=== PATIENT | female | born 1980 | race Caucasian/White ===

== ENCOUNTER 2018-05-27 16:58 | Outpatient (CLI) | END 2018-05-27 20:35 | disposition home or self-care (01) ==

== ENCOUNTER 2018-09-05 12:09 | Outpatient (CLI) | payer MEDICAID ==
[~2018-09-05] VITALS: Ht 157.5 cm; Wt 110.2 kg
[~2018-09-05 12:09] MED LIST: METF500T24 PO; PREN1TAB49 PO
[2018-09-05 12:18] VITALS: Ht 157.5 cm; Wt 110.2 kg
[2018-09-05 12:42] VITALS: BP 132/72; PULSE 88; RESP 18
--- NOTE | 2018-09-05 15:18 | PN ---
Triage Information Date/Time Reason for visit: GDM for NST BPP Weeks of Gestation 37+ /Para 3/2 Diabetes: gestational Diabetes management: diet controlled Hypertention: none Objective Vital Signs Date Temp Pulse Resp B/P (MAP) Pulse Ox O2 O2 Flow FiO2 Time Delivery Rate 09/05/18 98.5 88 18 132/72 Room Air 12:42 (92) Heart Rate: 140's Contractions: None Results/Medications Results 24 hrs Laboratory Tests Test 09/05/18 12:53 Bedside Glucose 79 Disposition: Discharge Assessment/Plan BPP 04/20 +FM Cx closed Questions answered Precautions discussed Follow up with provider SILVER FOWLER M.D. Sep 05, 2018 15:18
--- NOTE | 2018-09-05 15:30 | TRIAGE ---
OB Triage Datetime Report Generated by CPN: 09/05/2018 15:30 Datetime: 09/05/2018 15:08 Vaginal Exam Dilatation (cms): 0.5 Effacement (%): 70 Station: -3 Exam By: bjacobo Datetime: 09/05/2018 14:45 Stage of : OB Triage Labor Evaluation Frequency: occ Monitor Mode: External Duration (sec)2399: 70-100 Quality: Moderate Pattern: Normal: <= 5 Contractions in 10 Minutes Resting Tone [place]: Relaxed Heart Rate FHR Baseline Rate: 130 Monitor Mode: External US Variability: Moderate 6-25 bpm Accelerations: 15X15 Decelerations: None Category: Category I Pain Assessment Pain Scale: 0 Pain Presence: None/Denies Pain Type: N/A Datetime: 09/05/2018 13:45 Stage of : OB Triage Labor Evaluation Frequency: occ Monitor Mode: External Duration (sec)2399: 70-110 Quality: Moderate Pattern: Normal: <= 5 Contractions in 10 Minutes Resting Tone [place]: Relaxed Heart Rate FHR Baseline Rate: 130 Monitor Mode: External US Variability: Moderate 6-25 bpm Accelerations: 15X15 Decelerations: None Category: Category I Pain Assessment Pain Scale: 0 Pain Presence: None/Denies Pain Type: N/A Datetime: 09/05/2018 12:53 Bedside Blood Glucose: 79 Datetime: 09/05/2018 12:47 Labor Evaluation Frequency: x1 Monitor Mode: External Duration (sec)2399: 120 Quality: Moderate Pattern: Normal: <= 5 Contractions in 10 Minutes Resting Tone [place]: Relaxed Heart Rate FHR Baseline Rate: 140 Monitor Mode: External US Variability: Minimal - Undetectable to <=5 bpm Accelerations: 15X15 Decelerations: None Category: Category II Pain Presence: None/Denies Pain Type: N/A Datetime: 09/05/2018 12:28 Assessment Type: Triage Maternal Assessment Level of Consciousness: Fully Conscious Headache: Denies Blurred Vision: No Respiratory Effort: Unlabored; Regular Rhythm; Equal Expansion Breath Sounds, Left: Clear and Equal Breath Sounds, Right: Clear and Equal Nausea/Vomiting: Denies RUQ Epigastric Pain: Denies Lower Extremities Edema: Bilateral Lower Extremities Degree: 1+ Upper Extremities Edema: None Degree: None Facial Edema: None Fall Risk Assessment History of Falling: (0) No Secondary Diagnosis: (0) No Ambulatory Aid: (0) Bedrest/Nurse Assist IV Therapy: (0) No Gait: (0) Normal/Bedrest/Immobile Mental Status: (0) Oriented to Own Ability Fall Score: 0 Fall Risk Score Definition: No Risk: No action required Datetime: 09/02/2018 10:38 Time of Arrival: 09/05/2018 12:00 EGA: 37.3 Arrived By: Ambulatory Arrived From: Dr. Juarez Movement: Decreased Contractions: Denies/Absent Rupture of Membranes: Denies Vaginal Bleeding: None Vaginal Discharge: Denies Recent Sexual Intercouse: Denies Abdominal Trauma: Not Applicable Patient Complaints: None Time Provider Notified: 09/05/2018 14:46 Provider Notified: Delshad Initial Plan: Orders with BPP/ NST Datetime: 08/09/2018 03:49 EGA: 33.4 Datetime: 05/27/2018 21:02 EGA: 23.0 Datetime: 05/27/2018 17:26 Fall Score: 0 Fall Risk Score Definition: No Risk: No action required
== END 2018-09-05 15:42 | disposition home or self-care (01) ==
LOC: L-D 12:09 → OBT 12:09 → L-D 12:12 → OBT 15:42
PROVIDERS: ATTEND Obstetrics & Gynecology
DX: O24.410 Gestational diabetes mellitus in pregnancy, diet controlled (principal); O36.8130 Decreased fetal movements, third trimester, not applicable or unspecified; Z3A.37 37 weeks gestation of pregnancy
CPT/HCPCS: 76818; 82962; Z7500; G0463

== ENCOUNTER 2018-09-16 10:04 | Inpatient (IN) | payer MEDICAID ==
[~2018-09-16] VITALS: Ht 154.9 cm; Wt 108.8 kg
[~2018-09-16 10:04] MED LIST changes: -METF500T24 PO; +OXYTOCIN 30 UNITS/LR 500 ML BAG IV ONE
[2018-09-16 10:17] VITALS: Ht 154.9 cm; Wt 108.8 kg
[2018-09-16] MEDS ORDERED: OXYTOCIN 30 UNITS/LR 500 ML IV PRN ×2 (10:30→20:30)
[2018-09-16] MEDS ORDERED: METHYLERGONOVINE 0.2 MG INJ IM PRN ×2 (10:30→20:30)
[2018-09-16] MEDS ORDERED: CEFAZOLIN 2 GM/50 ML (PMX) 50 ML IVPB SCH (10:30)
[2018-09-16] MEDS ORDERED: CARBOPROST 250 MCG INJ IM PRN ×2 (10:30→20:30)
[2018-09-16] MEDS ORDERED: MISOPROSTOL 200 MCG TAB PR PRN ×2 (10:30→20:30)
[2018-09-16] MEDS ORDERED: CITRIC ACID/NA CITRATE 30 ML CUP ONE (10:39)
[2018-09-16] MEDS ORDERED: ONDANSETRON 4 MG INJ ONE (10:40)
[2018-09-16] MEDS: LACTATED RINGER'S 1,000 ML IV SCH ×2 (11:01→18:18)
[2018-09-16 11:02] VITALS: BP 131/77; PULSE 88; RESP 18
--- NOTE | 2018-09-16 11:44 | PREAC ---
Date/Time of Note Date/Time of Note DATE: 09/16/18 TIME: 11:43 Anesthesia Eval and Record Evaluation Time Pre-Procedure Interview DATE: 09/16/18 TIME: 11:43 Age 37 Sex female NPO: 8 hrs Preoperative diagnosis Repeat and BTL Planned procedure and BTL Past Medical History Past Medical History: Includes Heme: Anemia : : (4), Para: (3), Gestational age: (39), Gestational diabetes Surgery & Anesthesia Issues No known issue Meds Anticoagulation: No Beta Yamilka within 24 hr: No Reason Beta Yamilka not given: Pt. not on B-Yamilka Reported Medications Vits W-Ca,Fe,Fa(<1MG) () 1 Tab Tablet, 1 TAB PO 03/04/12 Current Medications Lactated Ringer's 1,000 ml @ 125 mls/hr Q8H IV Last administered on 09/16/18at 11:01; Admin Dose 125 MLS/HR; Start 09/16/18 at 10:18 Cefazolin Sodium/ Dextrose 50 ml @ 100 mls/hr ONCE IVPB ; Start 09/16/18 at 1 0:30 Oxytocin/Lactated Ringer's 500 ml @ 125 mls/hr POST IV ; Start 09/16/18 at 10:30 Oxytocin/Lactated Ringer's 500 ml @ 0 mls/hr ONCE PRN IV .VAGINAL BLEEDING; Start 09/16/18 at 10:30 Methylergonovine Maleate (Methergine) 0.2 mg ONCE PRN IM .VAGINAL BLEEDING; Start 09/16/18 at 10:30 Carboprost Tromethamine (Hemabate) 250 mcg ONCE PRN IM .VAGINAL BLEEDING; Start 09/16/18 at 10:30 Misoprostol (Cytotec) 1,000 mcg ONCE PRN [place] .VAGINAL BLEEDING; Start 09/16/18 at 10:30 Meds reviewed: Yes Allergies Coded Allergies: No Known Allergy (Unverified , 09/05/18) Allergies Reviewed: Yes Labs/Studies Labs Reviewed: Reviewed by anesthesiologist Result Diagram: 09/16/18 1048 09/16/18 1048 Laboratory Tests 09/16/18 10:48 Blood Bank Test 09/16/18 10:48 Antibody Screen NEGATIVE Blood Type O POSITIVE Rh Immune Globulin Candidate NO test: Positive Studies: ECG (n/a), CXR (n/a) Pre-procedure Exam Last vitals Vital Signs Date Temp Pulse Resp B/P (MAP) Pulse Ox O2 O2 Flow FiO2 Time Delivery Rate 09/16/18 98.0 88 18 131/77 Room Air 11:02 (95) Airway: Adequate mouth opening, Adequate thyromental dist Mallampati: Mallampati II Teeth: Normal Lung: Normal Heart: Normal ASA Physical Status ASA physical status: 2 Emergency: None Planned Anesthetic Neuraxial: Spinal Planned Pain Management Sub-arachniod narcotics, Parenteral pain med Pre-operative Attestations Prior to commencing anesthesia and surgery, the patient was re-evaluated, there was verification of: *The patient's identity *The results of appropriate recent lab work and preoperative vital signs *The above evaluation not changing prior to induction *Anesthetic plan, risk benefits, alternative and complications discussed with pa tient/family; questions answered; patient/family understands, accepts and wishes to proceed. JANNIE SAUCEDO MD Sep 16, 2018 11:44
[2018-09-16] MEDS ORDERED: CITRIC ACID/NA CITRATE 30 ML CUP PO ONE (12:00)
[2018-09-16] MEDS ORDERED: ONDANSETRON 4 MG INJ IV ONE (12:00)
--- NOTE | 2018-09-16 13:15 | HP ---
Date/Time of Note Date/Time of Note DATE: 09/16/18 TIME: 13:13 OB - History Hx of Present Chief Complaint: scheduled Estimated Due Date: Sep 23, 2018 : 5 Para: 3 Spontaneous : 1 Therapeutic : 0 Care: Good Care Ultrasounds: Normal mid trimester US Obstetrical Complications: Gestational Diabetes Medical Complications: None Past Family/Social History * Past Medical, Surgical, Family and Obstetric Histories reviewed from chart. GBS Status: Negative OB Admission Exam Vital Signs Vital Signs Vital Signs Date Temp Pulse Resp B/P (MAP) Pulse Ox O2 O2 Flow FiO2 Time Delivery Rate 09/16/18 98.0 88 18 131/77 Room Air 11:02 (95) Physical Exam HEENT: WNL Heart: Rhythm Normal Lungs: Clear, Equal Abdomen: WNL Extremities: Normal Reflexes: Normal Heart Rate: 120's Accelerations: Accelerations Present Decelerations: No Decelerations Varibility: Moderate Last 72 hours Lab Results CBC & BMP 09/16/18 10:48 OB Assessment/Plan Reason for admission: section Other Assessment: Voluntary sterilization Plan: Section, Other Other plan: Bilateral Tubal Ligation LING CRAWFORD MD Sep 16, 2018 13:15
[2018-09-16] MEDS ORDERED: PHENYLephrine (100 MCG/ML) 10ML SYG ONE (13:27)
[2018-09-16] MEDS ORDERED: morphine SULFATE/PF (10 MG/10 ML) INJ ONE (13:28)
[2018-09-16] MEDS ORDERED: OXYTOCIN 10 UNIT INJ ONE (13:28)
[2018-09-16] MEDS ORDERED: ACETAMINOPHEN 500 MG TAB PO PRN (14:00)
[2018-09-16] MEDS ORDERED: NALOXONE (0.4 MG/ML) INJ IV PRN (14:00)
[2018-09-16] MEDS ORDERED: morphine 2 MG INJ IV PRN ×2 (14:00)
[2018-09-16] MEDS ORDERED: NALBUPHINE HCL (10 MG/1 ML) INJ IV PRN (14:00)
[2018-09-16] MEDS ORDERED: ONDANSETRON 4 MG INJ IV PRN (14:00)
[2018-09-16] MEDS ORDERED: HYDROCODONE/APAP (5/325) TAB PO PRN (14:00)
[2018-09-16] MEDS ORDERED: HYDROmorphONE 0.5 MG/0.5 ML SYG IV PRN ×2 (14:00)
[2018-09-16] MEDS ORDERED: DIPHENHYDRAMINE 50 MG INJ IV PRN (14:00)
[2018-09-16] MEDS ORDERED: KETOROLAC 30 MG INJ ONE (14:13)
[2018-09-16] MEDS ORDERED: METOCLOPRAMIDE 10 MG INJ ONE (14:13)
[2018-09-16] MEDS ORDERED: DEXAMETHASONE 4 MG/ML 1 ML INJ ONE (14:13)
--- NOTE | 2018-09-16 14:48 | PAC ---
Date/Time of Note Date/Time of Note DATE: 09/16/18 TIME: 14:48 Post-Anesthesia Notes Post-Anesthesia Note Last documented vital signs Vital Signs Date Temp Pulse Resp B/P (MAP) Pulse Ox O2 O2 Flow FiO2 Time Delivery Rate 09/16/18 98.0 88 18 131/77 96 Room Air 14:55 (95) Activity: WNL Respiratory function: WNL Cardiovascular function: WNL Mental status: Baseline Pain reasonably controlled: Yes Hydration appropriate: Yes Nausea/Vomiting absent: Yes JANNIE SAUCEDO MD Sep 16, 2018 14:48
--- NOTE | 2018-09-16 14:59 | OPPN ---
Date/Time of Note Date/Time of Note DATE: 09/16/18 TIME: 14:53 Operative Report Planned Procedure Procedure date Sep 16, 2018 Procedure(s) Repeat c/s and BTL Performed by Ling Crawford MD Staff Psychiatrist: ANTHONY SOSA MD 2nd Staff Psychiatrist none Anesthesiologist: JANNIE SAUCEDO MD Pre-procedure diagnosis Term , previous c/s and voluntary sterilization [id number] Anesthesia Type: [id number] spinal Post-Procedure Post-procedure diagnosis Same Findings Live Baby, Apgars 8 and 9. Estimated Blood Loss: other (600 ml) Specimen(s) Placenta and Fallopian tubes Grafts/Implant(s) none Complication(s) none LING CRAWFORD MD Sep 16, 2018 14:59
[2018-09-16] MEDS: OXYTOCIN 30 UNITS/LR 500 ML IV SCH ×3 (15:00→19:48)
[2018-09-16] MEDS: KETOROLAC 30 MG INJ IV PRN (16:50)
--- NOTE | 2018-09-16 17:23 | OPR ---
DATE OF OPERATION: 09/16/2018 PREOPERATIVE DIAGNOSES: 1. Term . 2. Previous section. 3. Gestational diabetes. 4. Voluntary sterilization. POSTOPERATIVE DIAGNOSES: 1. Term . 2. Previous section. 3. Gestational diabetes. 4. Voluntary sterilization. OPERATIONS: Repeat low transverse section and bilateral tubal ligation. SURGEON: Ling Toth MD DRAWING MACHINE OPERATOR: Katia Garcia MD ANESTHESIA: Spinal. ANESTHESIOLOGIST: Andrew Augustine MD PROCEDURE IN DETAILS: The patient was taken to operating room, placed on the operating table. After successful spinal anesthesia was given, the patient was placed in supine position. The area was pre pared and draped in the usual sterile fashion. Spinal anesthesia was tested and was satisfactory. U sing a scalpel, Pfannenstiel incision was made about 2 fingerbreadths above the symphysis pubis. The incision was carried down to the fascia. The fascia was incised and extended bilaterally with Small scissors. Two Kochers were used to separate the fascia from the muscle. The muscle was dissected do wn to peritoneum. The peritoneum was secured with 2 Kellys and incised with Metzenbaum scissors. Up on entering the peritoneal cavity, I used scalpel. A small transverse incision was made in the lower segment of the uterus. Upon entering the uterine cavity, bandage scissors were inserted to extend t he incision bilaterally, curved up. Baby was delivered from cephalic presentation. After suctioning clear amniotic fluid, the baby was handed off to the team in attendance. Apgars were 8 and 9. Placenta was delivered without difficulty. Uterus was closed using #1 Monocryl continuous shreya d. After assuring hemostasis, both ovaries and tubes were inspected and looked normal. The right fa llopian tube was grasped with a Christian clamp. Using 0 plain suture ligature, a 5 cm segment of the right fallopian tube was doubly ligated. Using Metzenbaum scissors, a portion of the right fallopian tube was then ligated, excised and sent to pathology. The same procedure was repeated on the left f allopian tube. After assuring hemostasis, the peritoneum was closed with 2-0 Vicryl continuous. Fas tanisha was closed with #1 Vicryl continuous in 2 segments. Subcutaneous tissue was reapproximated with 2-0 plain. The skin was closed with nakul. Estimated blood loss was 600 mL. All counts were marin ect. Dictated By: LING CURRY/LISANDRA Conf#: [id number] DID#: [id number]
[2018-09-16] MEDS ORDERED: LACTATED RINGER'S 1,000 ML IV SCH (20:10)
[2018-09-16] MEDS ORDERED: OXYTOCIN 30 UNITS/LR 500 ML IV SCH (20:10)
[2018-09-16 20:15] VITALS: BP 118/65; PULSE 82; RESP 18
[2018-09-16] MEDS ORDERED: OXYCODONE/ACETAMINOPHEN (5/325) TAB PO PRN (20:30)
[2018-09-16] MEDS: SENNA/DOCUSATE NA (8.6MG/50MG) TAB PO SCH (21:00)
[2018-09-17 01:00] VITALS: BP 123/61; PULSE 82; RESP 18
[2018-09-17] MEDS: KETOROLAC 30 MG INJ IV PRN ×2 (02:22→09:57)
[2018-09-17 04:06] VITALS: BP 110/59; PULSE 79; RESP 18
[2018-09-17 08:30] VITALS: BP 104/55; PULSE 81; RESP 18
[2018-09-17] MEDS: SENNA/DOCUSATE NA (8.6MG/50MG) TAB PO SCH ×2 (09:00→21:36)
[2018-09-17] MEDS: OXYCODONE/ACETAMINOPHEN (5/325) TAB PO PRN ×2 (14:10→18:05)
[2018-09-17 16:00] VITALS: BP 115/70; PULSE 82; RESP 18
--- NOTE | 2018-09-17 16:20 | QN ---
Documentation Comment No complaint Afebrile VSS Abdomen soft ND POD #1 Stable Ambulate advance diet. LING CRAWFORD MD Sep 17, 2018 16:20
[2018-09-17] MEDS: LANOLIN HPA 1 PKT TOP PRN (16:21)
[2018-09-17 19:30] VITALS: BP 140/74; PULSE 86; RESP 16
[2018-09-17] MEDS: IBUPROFEN 800 MG TAB PO SCH (21:36)
[2018-09-18] VITALS: BP 130/72; PULSE 80; RESP 16
[2018-09-18] MEDS: OXYCODONE/ACETAMINOPHEN (5/325) TAB PO PRN ×3 (00:03→16:56)
[2018-09-18 04:30] VITALS: BP 121/71; PULSE 71; RESP 16
[2018-09-18] MEDS: IBUPROFEN 800 MG TAB PO SCH ×3 (06:19→21:26)
[2018-09-18 08:15] VITALS: BP 123/72; PULSE 71; RESP 18
[2018-09-18] MEDS: SENNA/DOCUSATE NA (8.6MG/50MG) TAB PO SCH ×2 (08:33→21:26)
[2018-09-18] MEDS: LANOLIN HPA 1 PKT TOP PRN (16:57)
[2018-09-18] MEDS ORDERED: MAGNESIUM HYDROXIDE 30ML CUP PO ONE (18:30)
--- NOTE | 2018-09-18 18:33 | QN ---
Documentation Comment No complaint Afebrile VSS Abdomen soft Stable Continue persent care LING CRAWFORD MD Sep 18, 2018 18:33
[2018-09-18 19:42] VITALS: BP 128/80; PULSE 79; RESP 19
[2018-09-19 04:30] VITALS: BP 140/76; PULSE 66; RESP 19
[2018-09-19] MEDS: IBUPROFEN 800 MG TAB PO SCH ×2 (06:18→13:08)
[2018-09-19 08:06] VITALS: BP 129/68; PULSE 64; RESP 17
[2018-09-19] MEDS ORDERED: DIPHTH/TET/ACEL PERTUSS (ADULT) 0.5 ML VIAL IM* ONE (09:00)
[2018-09-19] MEDS: SENNA/DOCUSATE NA (8.6MG/50MG) TAB PO SCH (10:10)
[2018-09-19 13:11] VITALS: BP 133/75; PULSE 85; RESP 18
--- NOTE | 2018-09-19 14:22 | DS ---
Date/Time of Note Date/Time of Note DATE: 09/19/18 TIME: 14:21 Obstetrical Discharge Record Final Diagnosis Final Diagnosis: Term delivered Vaginal Delivery Obstetrical Delivery: Bilateral Tubal Ligation Section Section: Repeat Complications Gestational Diabetes Condition on Discharge Physical Assessment Voiding: Yes Bowel Movement: Yes Breast: Soft, non-tender, Filling Fundus: Firm Abdomen and Incision: Incision intact Calf Tenderness: No Patient Condition: Stable LING CRAWFORD MD Sep 19, 2018 14:22
--- NOTE | 2018-09-19 14:31 | NSTRPT ---
NST Information Datetime Report Generated by CPN: 09/19/2018 14:31 Datetime: 09/13/2018 09:41 NST Information EGA: 38.4 Test Number: 7 Time on Monitor: 09/13/2018 10:15 Time off Monitor: 09/13/2018 10:59 NST Duration (Min): 44 Reason for NST: Diabetes Mellitus; Other Reason for NST Other: A1DM, AMA Test and Monitor Explained: Monitor Explained; Test Explained; Verbalized Understanding Pulse: 90 Resp: 18 SBP: 116 DBP: 70 Test Evaluation NST Interventions: None Patient States Movement: Present Contraction Frequency: NONE FHR Baseline : 140 Variability: Moderate 6-25bpm Accelerations: 15X15 Decelerations: None FHR Category: Category I NST Results: Reactive Comments: To u /s. RUBENS 14.4cm. CEPHALIC. FBS 90 Electronically Signed By E-Signature: with User ID: [id number] Datetime: 09/09/2018 10:25 NST Information EGA: 38.0 NST Duration (Min): 43 Datetime: 09/06/2018 10:36 NST Information EGA: 37.4 NST Duration (Min): 35 Datetime: 09/02/2018 10:10 NST Information EGA: 37.0 NST Duration (Min): 38 Datetime: 08/31/2018 09:40 NST Information EGA: 36.5 NST Duration (Min): 53 Datetime: 08/26/2018 10:22 NST Information EGA: 36.0 NST Duration (Min): 28 Datetime: 08/23/2018 10:00 NST Information EGA: 35.4 NST Duration (Min): 46
== END 2018-09-19 15:25 | disposition home or self-care (01) | DRG 785 ==
LOC: L-D 10:04 → PP1 20:13
PROVIDERS: ADMIT Obstetrics & Gynecology; ATTEND Obstetrics & Gynecology
PROC: 0UL70ZZ Occlusion of Bilateral Fallopian Tubes, Open Approach (ICD-10-PCS; 2018-09-16)
PROC: 3E033VJ Introduction of Other Hormone into Peripheral Vein, Percutaneous Approach (ICD-10-PCS; 2018-09-16)
PROC: 10D00Z1 Extraction of Products of Conception, Low, Open Approach (ICD-10-PCS; principal; 2018-09-16 12:30)
DX: O34.211 Maternal care for low transverse scar from previous cesarean delivery (principal); O24.429 Gestational diabetes mellitus in childbirth, unspecified control; Z3A.39 39 weeks gestation of pregnancy; Z37.0 Single live birth; Z30.2 Encounter for sterilization
CPT/HCPCS: 80053; 81001; 82947; 84560; 85025; 85610; 85730; 86592; 86850; 86900; 86901; 87340; 88302; 90686; 90715; 99464; J0690; J1100; J1200; J1885; J2274; J2370; J2405; J2590; J2765; J7120